=== PATIENT | male | born 1985 | race African-American/Black ===

== ENCOUNTER → 2023-03-19 | Emergency (ER) | payer OTHER ==
[~2023-03-19] VITALS: Ht 180.3 cm; Wt 111.1 kg
[~2023-03-19] MED LIST: IV NS 0.9% 1,000 ML IV ONE; LORAZEPAM INJ 2 MG/ML VIAL IM ONE; LORAZEPAM INJ 2 MG/ML VIAL ONE; OLANZAPINE 10 MG VIAL IM ONE; diphenhydrAMINE HCL 50 MG/ML VIAL IM ONE; diphenhydrAMINE HCL 50 MG/ML VIAL ONE
--- NOTE | 2023-03-19 08:20 | NUR ---
pt BIBA ambulance due to hallucinations.
--- NOTE | 2023-03-19 08:20 | NUR ---
pt put on BW restraints. Zyprexa and Benadryl given IM on R deltoid
[2023-03-19 08:30] LABS: CALCIUM, SERUM 9.7 mg/dL (8.5-10.1); CARBON DIOXIDE 22 mmol/L (21-32); CHLORIDE 101 mmol/L (98-107); CREATININE 1.3 mg/dL (0.6-1.3); GLUCOSE 150 mg/dL (74-106); POTASSIUM 3.2 mmol/L (3.5-5.1); SODIUM SERUM 139 mmol/L (136-145); UREA NITROGEN, BLOOD 17 mg/dL (7-18)
[2023-03-19 08:34] LABS: BASOPHILS % (AUTO) 0.3 % (0.0-2.0); EOSINOPHILS % (AUTO) 0.6 % (0.0-6.0); HEMATOCRIT 39 % (39-51); HEMOGLOBIN 12.9 g/dL (13.5-17.5); LYMPHOCYTES # (AUTO) 1.3 K/uL (0.8-4.8); LYMPHOCYTES % (AUTO) 12.3 % (20.0-44.0); MEAN CORPUSCULAR HGB CONC 33 g/dl (31.0-36.0); MEAN CORPUSCULAR VOLUME 93 fL (80-96); NEUTROPHILS # (AUTO) 7.9 K/uL (1.8-8.9); NEUTROPHILS % (AUTO) 76.8 % (43.0-81.0); PLATELET COUNT (AUTO) 243 K/uL (150-450); RED BLOOD CELL COUNT(AUTO) 4.15 MIL/uL (4.5-6.0); WHITE BLOOD COUNT (AUTO) 10.3 K/uL (4.3-11.0)
[2023-03-19 08:58] LABS: ALANINE AMINOTRANSFERASE 61 U/L (12-78); ALKALINE PHOSPHATASE 91 U/L (46-116); ASPARTATE AMINOTRANSFERASE 32 U/L (15-37); BILIRUBIN,DIRECT 0.4 mg/dL (0.0-0.2); BILIRUBIN,TOTAL 1.4 mg/dL (0.2-1.0)
[2023-03-19 08:59] LABS: ALCOHOL, BLOOD < 3 mg/dL (0-0)
[2023-03-19 09:28] LABS: BILIRUBIN,URINE 2+ (NEGATIVE); COLOR,URINE DARK YELLOW (YELLOW); LEUKOCYTE ESTERASE ,URINE NEGATIVE (NEGATIVE); NITRITE, URINE NEGATIVE (NEGATIVE); PROTEIN,URINE 2+ mg/dl (NEGATIVE); UGLUCOSE NEGATIVE (NEGATIVE)
[2023-03-19 10:00] LABS: BACTERIA,URINE Rare /HPF (None Seen); SQUAMOUS EPITHELIAL CELL,UR Few /HPF (None Seen)
--- NOTE | 2023-03-19 11:10 | NUR ---
SISTER, OTONIEL HACKETT. LEFT CONTACT NUMBER. [phone]
--- NOTE | 2023-03-19 13:15 | NUR ---
pt in bed comfortable. Removed restraint on RA
--- NOTE | 2023-03-19 14:03 | NUR ---
IV started on LAC 22g
[2023-03-19 16:08] VITALS: BP 146/88
--- NOTE | 2023-03-19 16:08 | NUR ---
Patient discharged to home in stable condition. Written and verbal after care instructions given. Patient verbalizes understanding of instruction.
== END | disposition home or self-care (01) ==
LOC: ER 07:46
DX: F91.1 Conduct disorder, childhood-onset type (principal); F19.959 Other psychoactive substance use, unspecified with psychoactive substance-induced psychotic disorder, unspecified; R45.1 Restlessness and agitation; F15.10 Other stimulant abuse, uncomplicated; R00.0 Tachycardia, unspecified; F31.9 Bipolar disorder, unspecified
CPT/HCPCS: 99291; 96372; 96361; 93005; 85025; 80048; 80076; 81001; 36415; 80143; 80320; 80307; J2060; J1200; J7030 ×2; J3490; G0480